=== PATIENT | female | born 1975 | race Caucasian/White ===

== ENCOUNTER → 2017-01-11 | Outpatient (CLI) | payer OTHER ==
[~2017-01-11] MED LIST: BIRTH CONTROL; CALCIUM1 CAP PO; NORCO 325 MG-51 TAB PO; OMEGA 31000 MG PO; PHENERGAN 25 TA25 MG PO; PRENATAL VITAMI1 TAB PO; VITAMIN C500 MG PO
== END ==
LOC: MC.RAD 14:00
DX: Z12.31 Encounter for screening mammogram for malignant neoplasm of breast (principal)

== ENCOUNTER → 2018-03-07 | Outpatient (CLI) | payer OTHER | LOC: MC.RAD 13:00 | DX: Z12.31 Encounter for screening mammogram for malignant neoplasm of breast (principal) ==

== ENCOUNTER → 2019-03-08 | Outpatient (CLI) | payer OTHER | LOC: MC.RAD 14:15 | DX: Z12.31 Encounter for screening mammogram for malignant neoplasm of breast (principal) ==

== ENCOUNTER → 2021-02-27 | Outpatient (CLI) | payer OTHER ==
[~2021-02-27] MED LIST changes: +JUNEL FE 1/20 21 TAB PO
== END ==
LOC: MC.RAD 13:59
DX: Z12.31 Encounter for screening mammogram for malignant neoplasm of breast (principal)

== ENCOUNTER 2021-07-22 08:51 | Day surgery (SDC) | payer OTHER ==
[~2021-07-22] VITALS: Ht 170.2 cm; Wt 121.9 kg
[~2021-07-22 08:51] MED LIST changes: -JUNEL FE 1/20 21 TAB PO
[2021-07-22] MEDS ORDERED: JUNEL FE 1/20 21 TAB PO (09:25)
[2021-07-22 09:54] VITALS: BP 153/76; PULSE 60; TEMP 97.7
[2021-07-22 11:26] VITALS: BP 128/63; PULSE 53; TEMP 97.4
--- NOTE | 2021-07-22 11:26 | NUR ---
The patient arrived back to [facility] from the operating room at this time. The patient appears alert and oriented and denies any pain or nausea at this time. The patient agrees to try some ice water at this time. The patient has acewrap dressings to her feet bilaterally that appear clean, dry and intact. Post operative vital signs were started at this time. The patient's was brought back to be at her bedside. Dr. Terry is at the patient's bedside discussing the outcome of the surgery with the patient and her . Will continue to monitor the patient.
[2021-07-22 11:41] VITALS: BP 132/66; PULSE 50
--- NOTE | 2021-07-22 11:41 | NUR ---
The patient appears to be tolerating the water well and agrees to try some toast at this time. The patient's vital signs appear stable. Call light is within reach. Will continue to monitor the patient.
[2021-07-22 11:56] VITALS: BP 121/74; PULSE 59
--- NOTE | 2021-07-22 11:56 | NUR ---
The patient appears to be tolering the toast well and denies wanting anything further to eat or drink. The patient's remains at her bedside. Will continue to monitor the patient.
[2021-07-22 12:11] VITALS: BP 122/72; PULSE 50
--- NOTE | 2021-07-22 12:11 | NUR ---
The patient voices a desire to be discharged home. The patient denies any pain or nasuea at this time. Will continue to monitor the patient.
--- NOTE | 2021-07-22 12:30 | NUR ---
Discharge instructions were reviewed with the patient and her at this time. They both verbalized understanding and have no questions for the nurse at this time. The patient's IV to her left forearm was removed and a pressure dressing was applied to the site. The nurse instructed the patient to get dressed and notify the staff when she is ready to be escorted out.
--- NOTE | 2021-07-22 12:40 | NUR ---
The patient was escorted out via wheelchair to a private to a private vehicle by JAVON Gamboa. The patient's belongings and discharge paperwork were sent with her. The patient's is present to drive her home.
== END 2021-07-22 12:40 | disposition home or self-care (01) ==
LOC: SDCO 08:51
DX: M77.31 Calcaneal spur, right foot (principal); M77.32 Calcaneal spur, left foot; E66.01 Morbid (severe) obesity due to excess calories; K21.9 Gastro-esophageal reflux disease without esophagitis; K58.9 Irritable bowel syndrome, unspecified; K58.1 Irritable bowel syndrome with constipation; G47.00 Insomnia, unspecified; G47.33 Obstructive sleep apnea (adult) (pediatric); J30.9 Allergic rhinitis, unspecified; Z20.822 Contact with and (suspected) exposure to COVID-19; Z99.89 Dependence on other enabling machines and devices; Z79.899 Other long term (current) drug therapy; Z68.41 Body mass index [BMI] 40.0-44.9, adult
CPT/HCPCS: J2704; J3010; J3301; J7120

== ENCOUNTER → 2022-03-30 | Outpatient (CLI) | payer OTHER ==
[~2022-03-30] MED LIST changes: +JUNEL FE 1/20 21 TAB PO
== END ==
LOC: MC.RAD 11:45
DX: Z12.31 Encounter for screening mammogram for malignant neoplasm of breast (principal)